=== PATIENT | female | born 2000 | race American Indian/Alaskan Native ===

== ENCOUNTER 2022-01-23 11:31 | Emergency (ER) | payer MEDICAID ==
[2022-01-23 13:31] LABS: Basophils % (Auto) 0.3 % (0.0-1.8); Eosinophils % (Auto) 0.5 % (0.0-4.3); Hemoglobin 13.1 gm/dl (10.1-14.3); Lymphocytes # (Auto) 1.6 K/mm3 (1.2-5.4); Lymphocytes % (Auto) 19.5 % (13.4-35.0); Mean Corpuscular HGB Conc 34 % (30-34); Mean Corpuscular Volume 89 fl (79-97); Monocytes # (Auto) 0.7 K/mm3 (0.0-0.8); Monocytes % (Auto) 8.7 % (0.0-7.3); Platelet Count 264 K/mm3 (140-440); Red Blood Count 4.37 M/mm3 (3.65-5.03); Red Cell Distribution Width 13.6 % (13.2-15.2)
[2022-01-23 13:52] LABS: Alanine Aminotransferase 12 units/L (7-56); Albumin 4.1 g/dL (3.9-5); Blood Urea Nitrogen 6 mg/dL (7-17); Hemolysis Index 5
[2022-01-23 14:02] LABS: BUN/Creatinine Ratio 15; Creatine Kinase MB < 1.0 ng/mL (0.0-4.0)
[2022-01-23 14:48] LABS: Bilirubin,Urine NEG (Negative); Blood,Urine NEG (Negative); Color,Urine Yellow (Yellow)
[2022-01-23 14:58] LABS: Amphetamine Screen,Urine PRESUMPTIVE NEGATIVE; Benzodiazepines Screen,Urine PRESUMPTIVE NEGATIVE; Cannabinoid Screen,Urine PRESUMPTIVE POSITIVE; Cocaine Screen,Urine PRESUMPTIVE NEGATIVE; Methadone Screen,Urine PRESUMPTIVE NEGATIVE; Opiate Screen,Urine PRESUMPTIVE NEGATIVE
[2022-01-23 15:20] LABS: RBC,Urine < 1.0 /HPF (0.0-6.0); WBC,Urine < 1.0 /HPF (0.0-6.0)
[2022-01-23 15:21] LABS: HCG Qualitative,Urine Positive (Negative)
--- NOTE | 2022-01-23 15:27 | XRay Report ---
CHEST 1 VIEW 01/23/2022 3:12 PM INDICATION / CLINICAL INFORMATION: Dyspnea. COMPARISON: None available. FINDINGS: SUPPORT DEVICES: None. HEART / MEDIASTINUM: No significant abnormality. LUNGS / PLEURA: No significant pulmonary or pleural abnormality. No pneumothorax. ADDITIONAL FINDINGS: No significant additional findings. IMPRESSION: 1. No acute findings. Signer Name: Kulwant Hodgson DO Signed: 01/23/2022 3:23 PM Workstation Name: [id number]
[2022-01-23] MEDS ORDERED: ACETAMINOPHEN 500 MG TAB PO ONE (15:47)
--- NOTE | 2022-01-23 15:50 | Emergency Department Report ---
ED General Adult HPI - General Chief complaint: Dyspnea/Respdistress Stated complaint: CHEST PAIN/BILATERAL EAR PAIN (8 WKS ) Time Seen by Provider: 01/23/22 12:08 Source: patient Mode of arrival: Ambulatory Limitations: No Limitations - History of Present Illness Initial comments: 8 weeks and reports that she had a earache for 2 days. A negative COVID test last week and states she feel SOB @ time with chest tightness/stabbing. -: Gradual Location: head Severity scale (0 -10): 2 Consistency: intermittent Improves with: none Worsens with: none - Related Data Previous Rx's Medication Instructions Recorded Last Taken Type Amoxicillin [Trimox CAP] 500 mg PO Q8H #21 capsule 01/23/22 Unknown Rx Neomy/Polymyx B/Hc Otic Susp 4 drops OTIC TID #1 bottle 01/23/22 Unknown Rx [Cortisporin (Otic) Susp] Allergies Allergy/AdvReac Type Severity Reaction Status Date / Time No Known Allergies Allergy Unverified 01/23/22 11:46 ED Review of Systems ROS: Stated complaint: CHEST PAIN/BILATERAL EAR PAIN (8 WKS ) Other details as noted in HPI Constitutional: denies: chills, fever Eyes: denies: eye pain, eye discharge, vision change ENT: denies: ear pain, throat pain Respiratory: denies: cough, shortness of breath, wheezing Cardiovascular: denies: chest pain, palpitations Endocrine: no symptoms reported Gastrointestinal: denies: abdominal pain, nausea, diarrhea Genitourinary: denies: urgency, dysuria, discharge Musculoskeletal: denies: back pain, joint swelling, arthralgia Skin: denies: rash, lesions Neurological: denies: headache, weakness, paresthesias Psychiatric: denies: anxiety, depression Hematological/Lymphatic: denies: easy bleeding, easy bruising ED Past Medical Hx - Past Medical History Previous Medical History?: No Hx Hypertension: No - Surgical History Past Surgical History?: No - Medications Home Medications: Home Medications Medication Instructions Recorded Confirmed Last Taken Type Amoxicillin [Trimox CAP] 500 mg PO Q8H #21 capsule 01/23/22 Unknown Rx Neomy/Polymyx B/Hc Otic Susp 4 drops OTIC TID #1 bottle 01/23/22 Unknown Rx [Cortisporin (Otic) Susp] ED Physical Exam - General Limitations: No Limitations General appearance: alert, in no apparent distress - Head Head exam: Present: atraumatic, normocephalic - Eye Eye exam: Present: normal appearance - ENT ENT exam: Present: mucous membranes moist - Neck Neck exam: Present: normal inspection - Respiratory Respiratory exam: Present: normal lung sounds bilaterally. Absent: respiratory distress - Cardiovascular Cardiovascular Exam: Present: regular rate, normal rhythm. Absent: systolic murmur, diastolic murmur, rubs, gallop - GI/Abdominal GI/Abdominal exam: Present: soft, normal bowel sounds - Extremities Exam Extremities exam: Present: normal inspection - Back Exam Back exam: Present: normal inspection - Neurological Exam Neurological exam: Present: alert, oriented X3 - Psychiatric Psychiatric exam: Present: normal affect, normal mood - Skin Skin exam: Present: warm, dry, intact, normal color. Absent: rash ED Course Vital Signs 01/23/22 11:42 Temperature 98.7 F Pulse Rate 83 Respiratory 20 Rate Blood Pressure 113/48 [Right] O2 Sat by Pulse 100 Oximetry ED Medical Decision Making - Lab Data Result diagrams: 01/23/22 12:48 01/23/22 12:48 Critical care attestation.: If time is entered above; I have spent that time in minutes in the direct care of this critically ill patient, excluding procedure time. ED Disposition Clinical Impression: URI (upper respiratory infection), Otitis media Disposition: 01 HOME / SELF CARE / HOMELESS Is pt being admited?: No Does the pt Need Aspirin: No Condition: Stable Instructions: Otitis Media, Adult, [id number], Upper Respiratory Infection, Adult, [id number] Referrals: PRIMARY CARE, [Primary Care Provider] - 3-5 Days
[2022-01-23 15:57] VITALS: BP 110/72
== END 2022-01-23 15:57 | disposition home or self-care (01) ==
LOC: ED 11:31
DX: O99.519 Diseases of the respiratory system complicating pregnancy, unspecified trimester (principal); O26.891 Other specified pregnancy related conditions, first trimester; H66.90 Otitis media, unspecified, unspecified ear; Z79.899 Other long term (current) drug therapy; Z3A.08 8 weeks gestation of pregnancy
CPT/HCPCS: 36415; 71045; 80053; 80307; 81001; 81025; 82550; 82553; 83690; 83880; 84484; 85025; 99284

== ENCOUNTER 2022-03-20 14:22 | Emergency (ER) | payer MEDICAID ==
[2022-03-20] MEDS ORDERED: ASPIRIN 325 MG TAB PO ONE (14:38)
[2022-03-20] MEDS ORDERED: SODIUM CHLORIDE 0.9% 1000 ML 1,000 ML IV ONE (15:18)
[2022-03-20] MEDS ORDERED: METOCLOPRAMIDE 10 MG/2 ML INJ IV ONE (15:18)
--- NOTE | 2022-03-20 15:31 | Emergency Department Report ---
HPI - General Chief Complaint: Chest Pain Time Seen by Provider: 03/20/22 15:03 - HPI HPI: Room 18 Patient is a 21-year-old female present with chief complaint of chest pain. Patient is 16 weeks and states this morning she awakened with subste rnal chest pain with a pleuritic component. Patient states she began to feel dizzy and lightheaded. Patient admits to a slight cough that began last night that is nonproductive. Patient denies history of fever. Patient states she has not been vaccinated against COVID ED Past Medical Hx - Past Medical History Previous Medical History?: Yes Additional medical history: Vaginal delivery stillbirth 06-29-2021. 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 - Surgical History Past Surgical History?: Yes Additional Surgical History: - Family History Family history: no significant - Social History Smoking Status: Current Every Day Smoker (1/2 pack/day) Substance Use Type: None (Denies illicit drug use) - Medications Home Medications: Home Medications Medication Instructions Recorded Confirmed Last Taken Type Amoxicillin [Trimox CAP] 500 mg PO Q8H #21 capsule 01/23/22 Unknown Rx Neomy/Polymyx B/Hc Otic Susp 4 drops OTIC TID #1 bottle 01/23/22 Unknown Rx [Cortisporin (Otic) Susp] Azithromycin [Zithromax Z-DANNY] 0 mg PO DAILY #6 tab 03/20/22 Unknown Rx ED Review of Systems ROS: Stated complaint: 16 WKS PREG/CP Other details as noted in HPI Constitutional: denies: fever Eyes: denies: eye pain ENT: denies: throat pain Respiratory: no symptoms reported Cardiovascular: chest pain Endocrine: no symptoms reported Gastrointestinal: nausea. denies: abdominal pain Genitourinary: denies: dysuria Musculoskeletal: denies: back pain Neurological: denies: headache Physical Exam - Physical Exam Vital Signs: Vital Signs 03/20/22 14:25 Temperature 97.6 F Pulse Rate 110 H Respiratory 18 Rate Blood Pressure 139/69 O2 Sat by Pulse 96 Oximetry Physical Exam: GENERAL: The patient is well-developed well-nourished female lying on stretcher not appearing to be in acute distress. [] HEENT: Normocephalic. Atraumatic. Extraocular motions are intact. Patient has moist mucous membranes. NECK: Supple. Trachea midline CHEST/LUNGS: Clear to auscultation. There is no respiratory distress noted. HEART/CARDIOVASCULAR: Regular. There is no tachycardia. There is no gallop rub or murmur. ABDOMEN: Abdomen is soft, nontender. Patient has normal bowel sounds. Gravid SKIN: There is no rash. There is no edema. There is no diaphoresis. NEURO: The patient is awake, alert, and oriented. The patient is cooperative. The patient has no focal neurologic deficits. The patient has normal speech. GCS 15 MUSCULOSKELETAL: There is no evidence of acute injury. heart tones 151 bpm ED Course Vital Signs 03/20/22 14:25 Temperature 97.6 F Pulse Rate 110 H Respiratory 18 Rate Blood Pressure 139/69 O2 Sat by Pulse 96 Oximetry - Reevaluation(s) Reevaluation #1: 03/20/22 16:25 Patient refuses chest x-ray. Patient advised without the chest x-ray some diagnoses may be missed. Patient verbalized understanding. Will treat empirically with antibiotic given patient's cough and chest pain. ED Medical Decision Making - Lab Data Result diagrams: 03/20/22 15:23 03/20/22 15:23 Laboratory Tests 03/20/22 03/20/22 03/20/22 15:23 15:23 15:23 WBC 9.9 RBC 4.17 Hgb 13.1 Hct 37.8 MCV 91 MCH 31 MCHC 35 H RDW 14.4 Plt Count 228 Lymph % (Auto) 9.0 L Lares % (Auto) 5.5 Eos % (Auto) 0.4 Baso % (Auto) 0.2 Lymph # (Auto) 0.9 L Lares # (Auto) 0.5 Eos # (Auto) 0.0 Baso # (Auto) 0.0 Seg Neutrophils % 84.9 H Seg Neutrophils # 8.4 H D-Dimer 242.29 H Sodium 133 L Potassium 3.8 Chloride 101.4 Carbon Dioxide 18 L Anion Gap 17 BUN 4 L Creatinine 0.3 L Estimated GFR > 60 BUN/Creatinine Ratio 13 Glucose 76 Calcium 9.2 Total Bilirubin 0.40 AST 9 ALT 8 Alkaline Phosphatase 68 Troponin T < 0.010 Total Protein 6.3 Albumin 3.9 Albumin/Globulin Ratio 1.6 - EKG Data -: EKG Interpreted by Md EKG shows normal: sinus rhythm Rate: normal - EKG Data When compared to previous EKG there are: previous EKG unavailable Interpretation: normal EKG - Differential Diagnosis Bronchitis, pneumonia, PE Critical care attestation.: If time is entered above; I have spent that time in minutes in the direct care of this critically ill patient, excluding procedure time. ED Disposition Clinical Impression: Chest pain, Cough Disposition: 01 HOME / SELF CARE / HOMELESS Is pt being admited?: No Does the pt Need Aspirin: No Condition: Stable Instructions: Nonspecific Chest Pain, Adult, Cough, Adult Additional Instructions: Return to the emergency department should you develop worsening symptoms, inability to tolerate food or liquids, high fever or any other concerns Prescriptions: Azithromycin [Zithromax Z-DANNY] 0 mg PO DAILY #6 tab Referrals: [facility] [Other] - 3-5 Days Time of Disposition: 16:28
[2022-03-20 16:08] LABS: Alanine Aminotransferase 8 units/L (7-56); Albumin 3.9 g/dL (3.9-5); BUN/Creatinine Ratio 13; Blood Urea Nitrogen 4 mg/dL (7-17); Calcium 9.2 mg/dL (8.4-10.2); Hemolysis Index 3
[2022-03-20 16:11] LABS: Basophils % (Auto) 0.2 % (0.0-1.8); Eosinophils % (Auto) 0.4 % (0.0-4.3); Hematocrit 37.8 % (30.3-42.9); Hemoglobin 13.1 gm/dl (10.1-14.3); Lymphocytes # (Auto) 0.9 K/mm3 (1.2-5.4); Mean Corpuscular HGB Conc 35 % (30-34); Mean Corpuscular Volume 91 fl (79-97); Monocytes # (Auto) 0.5 K/mm3 (0.0-0.8); Monocytes % (Auto) 5.5 % (0.0-7.3); Platelet Count 228 K/mm3 (140-440); Red Blood Count 4.17 M/mm3 (3.65-5.03); Red Cell Distribution Width 14.4 % (13.2-15.2)
[2022-03-20 18:46] VITALS: BP 111/57
--- NOTE | 2022-03-22 09:58 | Electrocardiograph Report ---
[facility] Test Date: 2022-03-20 Test Time: 14:31:07 Pat Name: DANETTE BHAGAT Department: Room: Gender: F [employer] Person: Deya COLLIER RN : 2000 Requested By: BAN RHODES Order Number: [id number] Reading MD: Merritt Sapp Measurements Intervals [place] Rate: 85 P: 73 MO: 149 QRS: 40 QRSD: 101 T: 28 QT: 373 QTc: 445 Interpretive Statements Sinus rhythm No previous ECG available for comparison Electronically Signed On 03-22-2022 9:58:03 EDT by Merritt Sapp
== END 2022-03-20 16:40 | disposition home or self-care (01) ==
LOC: ED 14:22
DX: R07.89 Other chest pain (principal); R05.9 Cough, unspecified; F17.210 Nicotine dependence, cigarettes, uncomplicated; Z98.890 Other specified postprocedural states; Z79.899 Other long term (current) drug therapy
CPT/HCPCS: 36415; 80053; 84484; 85025; 85379; 93005; 96361; 96374; 99283; J2765; J7030

== ENCOUNTER 2022-07-31 14:06 | Outpatient (CLI) | payer MEDICAID ==
[2022-07-31] MEDS ORDERED: LACTATED RINGERS 500 ML IV ONE (15:30)
[2022-07-31 15:45] VITALS: BP 120/74
--- NOTE | 2022-07-31 17:03 | Ultrasound Report ---
ULTRASOUND OBSTETRIC LIMITED ULTRASOUND BIOPHYSICAL PROFILE INDICATION / CLINICAL INFORMATION: bpp and shanika. - Clinical Gestational Age (GA) in weeks, days: 35, 2 TECHNIQUE: Transabdominal. COMPARISON: None available. FINDINGS: BREATHING MOVEMENT = 2 GROSS BODY MOVEMENT = 2 TONE = 2 QUALITATIVE AMNIOTIC FLUID VOLUME = 2 TOTAL BIOPHYSICAL SCORE = 8/8 HEART RATE (beats per minute): 172 AMNIOTIC FLUID INDEX (cm) = 8.0 (normal = 7-24 cm) PRESENTATION: Cephalic. ADDITIONAL FINDINGS: None. IMPRESSION: 1. Biophysical Score = 8/8 2. SHANIKA is 8.0 Signer Name: Choco Fernandes MD Signed: 07/31/2022 4:59 PM Workstation Name: [email or web address]
== END 2022-07-31 16:19 | disposition home or self-care (01) ==
LOC: TRG 14:06 → APU 14:08 → TRG 16:19
PROVIDERS: ATTEND Obstetrics & Gynecology
DX: Z34.93 Encounter for supervision of normal pregnancy, unspecified, third trimester (principal); Z3A.36 36 weeks gestation of pregnancy
CPT/HCPCS: 59025; 76815; 76819